=== PATIENT | male | born 1965 | race Caucasian/White ===

== ENCOUNTER 2017-05-30 09:27 | Emergency (ER) | payer SELFPAY ==
[2017-05-30 09:30] VITALS: BP 151/80; PULSE 76; RESP 20; TEMP 97.8; TEMP 98.3; O2SAT 98
--- NOTE | 2017-05-30 10:21 | PD ---
HPI Chief Complaint: Lump, Cyst, Hernia Time Seen by Provider: 10:21 Travel History International Travel<30 days: No Contact w/Intl Traveler<30days: No Traveled to known affect area: No History of Present Illness HPI 51-year-old male came to the emergency room with history of umbilical hernia that has been strangulated for past 2 days. Patient says it has been tender to touch but otherwise his appetite has been good, no vomiting or fever. Patient had a hernia surgery done in that area into thousand 6 with a mesh was applied. Slowly he has noticed that the hernia has started to come back again. He has not seen any surgeon for this. He does not have a primary care doctor. Vital signs otherwise stable. Patient appears to be anxious. [facility] Past Medical History Narrative Medical List of his past medical, surgical, social and family history is reviewed from the nursing note. Medical History: Denies Significant Hx Tetanus Vaccination: Unknown Past Surgical History Abdominal Surgery: Yes (umbilical hernia) Other Surgery: Yes (Hx of tracheostomy) Social History Alcohol Use: No Tobacco Use: No Substance Use: No Allergies-Medications (Allergen,Severity, Reaction): Coded Allergies: No Known Allergies (Unverified , 05/30/17) Comments No known drug allergies. Reported Meds & Prescriptions Reported Meds & Active Scripts Active Miralax Powder (Polyethylene Glycol 3350 Powder) 17 Gm Powd 17 Gm PO DAILY Mix and dissolve one measuring cap-ful (17 grams) in water or juice. Narrative Medication List of his home medications reviewed from the nursing note. Review of Systems Except as stated in HPI: all other systems reviewed are Neg Physical Exam Narrative GENERAL: Awake, alert, anxious, moderate distress, obese SKIN: Focused skin assessment warm/dry. HEAD: Atraumatic. Normocephalic. EYES: Pupils equal and round. No scleral icterus. No injection or drainage. ENT: No nasal bleeding or discharge. Mucous membranes pink and moist. NECK: Trachea midline. No JVD. CARDIOVASCULAR: Regular rate and rhythm. No murmur appreciated. RESPIRATORY: No accessory muscle use. Clear to auscultation. Breath sounds equal bilaterally. GASTROINTESTINAL: Abdomen soft, non-tender, nondistended. Hepatic and splenic margins not palpable. Umbilical hernia that is tender to touch and appears strangulated. MUSCULOSKELETAL: No obvious deformities. No clubbing. No cyanosis. No edema. NEUROLOGICAL: Awake and alert. No obvious cranial nerve deficits. Motor grossly within normal limits. Normal speech. PSYCHIATRIC: Appropriate mood and affect; insight and judgment normal. Data Data Last Documented VS Vital Signs Date Time Temp Pulse Resp B/P Pulse Ox O2 Delivery O2 Flow Rate FiO2 05/30/17 11:49 84 18 147/84 95 Room Air 05/30/17 11:17 2.00 05/30/17 09:30 98.3 Orders Midazolam Inj (Versed Inj) (05/30/17 10:30) Fentanyl Inj (Fentanyl Inj) (05/30/17 10:30) Fentanyl Inj (Fentanyl Inj) (05/30/17 11:30) [facility] Medical Decision Making Medical Screen Exam Complete: Yes Emergency Medical Condition: Yes Medical Record Reviewed: Yes Differential Diagnosis Strangulate umbilical hernia, incarcerated umbilical hernia Narrative Course 10:38 AM I explained to the patient that the hernia needs to be reduced. He is very anxious about it but understands the situation. This will be done under conscious sedation. Please refer to my procedure note for this. 11:55 AM after reducing 95% of the hernia I discussed the case with Dr. Tovar who is on for general surgery. He wanted to come and see the patient. Awaiting currently for him. Patient also requested financial assistance and the counselor came and spoke with him. Patient seems comfortable at this point. 12:30 PM patient was seen by Dr. Tovar and he agreed that most of the hernia is back in. Probably whatever is left behind is the omentum. He was comfortable discharging the patient as well. He gave the patient his card and will be more than happy to follow up with him in his office. Procedures Procedure Narrative After the risks and benefits were discussed the following procedure was performed: MODERATE SEDATION: The patient was placed on a figure clerk and pulse oximetry. An ambu bag and suction was immediately available at bedside. The patient was monitored by the nurse. Oxygen saturation , heart rate and blood pressure were monitored. Procedural sedation was acheived using 2 mg of IV Versed and 150 g of fentanyl. The patient was observed until awake and alert. Procedural Sedation time in attendance was 30 minutes. Umbilical hernia reduction: The hernia was attempted to be reduced under procedural sedation. I had him a new blade and pressure a lot and finally reduced at 95%. Patient tolerated the procedure very well. He felt the hernia himself and agreed that the swelling was significantly improved. EKG Prior to Arrival: No Diagnosis Primary Impression: Strangulated umbilical hernia Referrals: Kenneth Tovar MD 2 days Additional Instructions: Please call Dr. Tovar's office to make an appointment for further surgical plan for the hernia. Return to the ER if the condition worsens or any other new concerns. Take the medication for constipation as needed since he should not be straining at all which would make the hernia recur. It not be lifting anything heavy. Try to keep the belt on when you are up and moving around. Med/Other Pt SpecificInfo: Prescription(s) given Scripts Polyethylene Glycol 3350 Powder (Miralax Powder)17 Gm Powd17 Gm PO DAILY #1 CAN Ref 0 Mix and dissolve one measuring cap-ful (17 grams) in water or juice. Prov:Sj Llamas MD 05/30/17 Disposition: 01 DISCHARGE HOME Condition: Stable Sj Llamas MD May 30, 2017 10:21
[2017-05-30] MEDS ORDERED: MIDAZOLAM HCL 2 MG/2 ML VIAL IV PUSH ONE (10:30)
[2017-05-30 11:17] VITALS: O2SAT 98
[2017-05-30 11:49] VITALS: BP 147/84; PULSE 84; RESP 18; O2SAT 95
[2017-05-30] MEDS ORDERED: MIRA3350 PO (12:31)
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
== END 2017-05-30 12:50 | disposition home or self-care (01) ==
LOC: NEPD 09:27
DX: K42.0 Umbilical hernia with obstruction, without gangrene (principal)
CPT/HCPCS: 49999; 99152; 99153; 99285; J2250; J3010